=== PATIENT | female | born 1980 | race Caucasian/White ===

== ENCOUNTER 2018-08-11 21:44 | Emergency (ER) | payer SELFPAY ==
[~2018-08-11] VITALS: Ht 160 cm; Wt 86.2 kg
[~2018-08-11 21:44] MED LIST: ESCI20TA; IBUP-1222 PO; LABE100T6 PO; LORA1TAB; METH250T3 PO; METO5TAB57 PO; ONDA4TAB7 PO; PREN1TAB60 PO; VERA120C2; [UNRECOGNIZED DRUG - CODE]
[2018-08-11 22:41] LABS: HCG UR SG 1.039 (1.003-1.030); MICROSCOPIC INDICATED
[2018-08-11] MEDS ORDERED: MAALOX/HYOSCYAMINE/LIDOCAINE 45 ML BTL ONE (22:43)
[2018-08-11] MEDS ORDERED: ONDANSETRON ODT 4 MG ONE (22:43)
[2018-08-11] MEDS ORDERED: FAMOTIDINE 20 MG TABLET ONE (22:43)
[2018-08-11 22:47] LABS: BASOPHILS % (AUTO) 0 % (0-1); EOSINOPHILS # (AUTO) 0.06 x10^3/uL (0-0.4); EOSINOPHILS % (AUTO) 1 % (1-7); LYMPHOCYTES # (AUTO) 1.04 x10^3/uL (1-3.4); LYMPHOCYTES % (AUTO) 10 % (22-44); MD NO; MEAN CORPUSCULAR HEMOGLOBIN 30.4 pg (27.0-34.8); MEAN CORPUSCULAR HGB CONC 34.8 g/dL (32.4-35.8); MEAN CORPUSCULAR VOLUME 87.3 fL (80-100); MEAN PLATELET VOLUME 7.6 fL (7.4-10.4); MONOCYTES % (AUTO) 6 % (2-9); NEUTROPHILS # (AUTO) 9.08 x10^3/uL (1.8-6.8); NEUTROPHILS % (AUTO) 84 % (42-75); PLATELET COUNT 297 x10^3/uL (130-400); RED BLOOD COUNT 4.83 x10^6/uL (3.82-5.3); RED CELL DISTRIBUTION WIDTH 12.9 % (9.6-15.2)
[2018-08-11 22:57] LABS: ALANINE AMINOTRANSFERASE 36 U/L (12-78); ALBUMIN 3.4 g/dL (3.4-5.0); ANION GAP 7 mmol/L (5-15); CHLORIDE 108 mmol/L (98-107); CREATININE 0.68 mg/dL (0.55-1.02)
[2018-08-11 22:59] LABS: ALKALINE PHOSPHATASE 75 U/L (45-117); BILIRUBIN,TOTAL 1.1 mg/dL (0.2-1.0); TOTAL PROTEIN 7.6 g/dL (6.4-8.2)
[2018-08-11] MEDS ORDERED: FAMOTIDINE 20 MG TABLET PO ONE (23:00)
[2018-08-11] MEDS ORDERED: MAALOX/HYOSCYAMINE/LIDOCAINE 45 ML BTL PO ONE (23:00)
[2018-08-11] MEDS ORDERED: ONDANSETRON ODT 4 MG PO ONE (23:00)
[2018-08-11 23:08] LABS: CULTURE INDICATED? NO
[2018-08-11 23:51] VITALS: BP 113/78
== END 2018-08-11 23:51 | disposition home or self-care (01) ==
LOC: ED 23:45
DX: K29.00 Acute gastritis without bleeding (principal); I10 Essential (primary) hypertension
CPT/HCPCS: 36415; 80053; 81001; 81025; 83690; 85025; 93005; 99284; Q0162

== ENCOUNTER 2018-08-16 09:31 | Emergency (ER) | payer OTHER ==
[~2018-08-16] VITALS: Ht 160 cm; Wt 85.9 kg
[2018-08-16] MEDS ORDERED: ONDANSETRON 2MG/ML, 2ML IVPush ONE (11:00)
[2018-08-16] MEDS ORDERED: MAALOX/HYOSCYAMINE/LIDOCAINE 45 ML BTL PO ONE (11:00)
[2018-08-16] MEDS ORDERED: FAMOTIDINE 20 MG/2 ML IVP ONE (11:00)
[2018-08-16 11:13] LABS: MICROSCOPIC NOT IND
[2018-08-16 11:18] LABS: BASOPHILS # (AUTO) 0.02 x10^3/uL (0-0.1); BASOPHILS % (AUTO) 0 % (0-1); EOSINOPHILS # (AUTO) 0.05 x10^3/uL (0-0.4); EOSINOPHILS % (AUTO) 1 % (1-7); LYMPHOCYTES # (AUTO) 1.33 x10^3/uL (1-3.4); LYMPHOCYTES % (AUTO) 16 % (22-44); MD NO; MEAN CORPUSCULAR HEMOGLOBIN 30.2 pg (27.0-34.8); MEAN CORPUSCULAR HGB CONC 34.5 g/dL (32.4-35.8); MEAN CORPUSCULAR VOLUME 87.5 fL (80-100); MEAN PLATELET VOLUME 7.5 fL (7.4-10.4); MONOCYTES # (AUTO) 0.59 x10^3/uL (0.2-0.8); MONOCYTES % (AUTO) 7 % (2-9); NEUTROPHILS # (AUTO) 6.28 x10^3/uL (1.8-6.8); NEUTROPHILS % (AUTO) 76 % (42-75); PLATELET COUNT 336 x10^3/uL (130-400); RED BLOOD COUNT 4.99 x10^6/uL (3.82-5.3); RED CELL DISTRIBUTION WIDTH 13.1 % (9.6-15.2)
[2018-08-16 11:27] LABS: ALANINE AMINOTRANSFERASE 35 U/L (12-78); ALBUMIN 3.6 g/dL (3.4-5.0); ANION GAP 5 mmol/L (5-15); CALCIUM 8.7 mg/dL (8.5-10.1); CHLORIDE 110 mmol/L (98-107); CREATININE 0.62 mg/dL (0.55-1.02)
[2018-08-16 11:29] LABS: ALKALINE PHOSPHATASE 68 U/L (45-117); BILIRUBIN,TOTAL 0.7 mg/dL (0.2-1.0); TOTAL PROTEIN 7.1 g/dL (6.4-8.2)
[2018-08-16 11:31] LABS: CULTURE INDICATED? NO
[2018-08-16] MEDS ORDERED: FAMOTIDINE 20 MG/2 ML ONE (11:37)
[2018-08-16] MEDS ORDERED: MAALOX/HYOSCYAMINE/LIDOCAINE 45 ML BTL ONE (11:38)
[2018-08-16] MEDS ORDERED: ONDANSETRON ODT 4 MG ONE (11:38)
[2018-08-16 13:11] VITALS: BP 101/61
== END 2018-08-16 13:16 | disposition home or self-care (01) ==
LOC: ED 10:15
DX: K29.00 Acute gastritis without bleeding (principal); I10 Essential (primary) hypertension
CPT/HCPCS: 36415; 76700; 80053; 81003; 83690; 85025; 96374; 96375; 99284; J2405; J3490

== ENCOUNTER 2019-07-09 18:58 | Emergency (ER) | payer OTHER ==
[~2019-07-09] VITALS: Ht 160 cm; Wt 84.0 kg
--- NOTE | 2019-07-09 20:21 | NUR ---
MANAGER DATABASE: Patient to room from lobby at this time
--- NOTE | 2019-07-09 20:33 | NUR ---
PT STATED HAD SYNCOPAL EPISODE YESTERDAY AFTER BEING UPSET. PT REPORTS SHE FELT THOUGH HER BP WAS HIGH, PT REPORTS INCREASED STRESS SINCE YESTERDAY WITH CP, SOB AND THORNTON. HX OF HTN, HAS NOT BEEN COMPLIANT WITH MEDS. MONITORS APPLIED, SIDERAILS UP X2, CALL LIGHT WITHIN REACH
[2019-07-09 20:35] LABS: BASOPHILS # (AUTO) 0.04 x10^3/uL (0-0.1); BASOPHILS % (AUTO) 0 % (0-1); EOSINOPHILS # (AUTO) 0.17 x10^3/uL (0-0.4); EOSINOPHILS % (AUTO) 2 % (1-7); LYMPHOCYTES % (AUTO) 22 % (22-44); MD NO; MEAN CORPUSCULAR HEMOGLOBIN 31.1 pg (27.0-34.8); MEAN CORPUSCULAR VOLUME 91.3 fL (80-100); MEAN PLATELET VOLUME 7.8 fL (7.4-10.4); MONOCYTES # (AUTO) 0.58 x10^3/uL (0.2-0.8); MONOCYTES % (AUTO) 5 % (2-9); NEUTROPHILS # (AUTO) 8.21 x10^3/uL (1.8-6.8); NEUTROPHILS % (AUTO) 71 % (42-75); PLATELET COUNT 337 x10^3/uL (130-400); RED BLOOD COUNT 4.89 x10^6/uL (3.82-5.3)
[2019-07-09 20:38] LABS: ALBUMIN 4.1 g/dL (3.4-5.0); ANION GAP 7 mmol/L (5-15); CALCIUM 9.3 mg/dL (8.5-10.1); CHLORIDE 108 mmol/L (98-107)
[2019-07-09 20:41] LABS: TROPONIN I < 0.015 ng/mL (0.000-0.045)
[2019-07-09 21:40] VITALS: BP 149/99
== END 2019-07-09 21:45 | disposition home or self-care (01) ==
LOC: ED 21:20
DX: R07.89 Other chest pain (principal); F43.0 Acute stress reaction; R51 Headache; R06.02 Shortness of breath; I10 Essential (primary) hypertension; Z90.49 Acquired absence of other specified parts of digestive tract
CPT/HCPCS: 36415; 71046; 80048; 82040; 84484; 85025; 93005; 99284

== ENCOUNTER 2020-10-12 21:50 | Emergency (ER) | payer BC, MEDICAID ==
[~2020-10-12] VITALS: Ht 160 cm; Wt 84.0 kg
[~2020-10-12 21:50] MED LIST changes: -ESCI20TA; +ESCI20TA5
--- NOTE | 2020-10-12 22:14 | NUR ---
PT HERE FOR C/O NON RADIATING STERNAL CP SINCE 7PM, PLACED ON CARDIAC AND VITALS MONITORS. CALL LIGHT PLACED WITHIN REACH.
[2020-10-12] MEDS ORDERED: ASPIRIN 81 MG TABLET CHEW ONE (22:49)
[2020-10-12] MEDS ORDERED: ACETAMINOPHEN 500 MG TABLET ONE (22:49)
--- NOTE | 2020-10-12 22:55 | NUR ---
MEDICATED PER [facility]. LAB AND XRAY AT BEDSIDE.
[2020-10-12] MEDS ORDERED: ASPIRIN 81 MG TABLET CHEW PO ONE (23:00)
[2020-10-12] MEDS ORDERED: ACETAMINOPHEN 500 MG TABLET PO ONE (23:00)
[2020-10-12] MEDS ORDERED: METR500T PO (23:02)
--- NOTE | 2020-10-12 23:04 | NUR ---
REPORT TO LAURA ELIAS.
[2020-10-12 23:06] LABS: BASOPHILS % (AUTO) 0 % (0-1); EOSINOPHILS % (AUTO) 1 % (1-7); LYMPHOCYTES % (AUTO) 29 % (22-44); MEAN CORPUSCULAR HEMOGLOBIN 30.8 pg (27.0-34.8); MEAN CORPUSCULAR HGB CONC 35.3 g/dL (32.4-35.8); MEAN PLATELET VOLUME 7.3 fL (7.4-10.4); MONOCYTES % (AUTO) 7 % (2-9); NEUTROPHILS % (AUTO) 63 % (42-75); PLATELET COUNT 298 x10^3/uL (130-400); RED BLOOD COUNT 4.45 x10^6/uL (3.82-5.3); RED CELL DISTRIBUTION WIDTH 12.6 % (9.6-15.2)
[2020-10-12 23:14] LABS: MD NO
[2020-10-12 23:15] LABS: ALBUMIN 3.5 g/dL (3.4-5.0); ANION GAP 5 mmol/L (5-15); CALCIUM 8.6 mg/dL (8.5-10.1); CHLORIDE 111 mmol/L (98-107); CREATININE 0.67 mg/dL (0.55-1.02)
[2020-10-12 23:19] LABS: TROPONIN I < 0.015 ng/mL (0.000-0.045)
[2020-10-13 00:37] VITALS: BP 152/92
== END 2020-10-13 00:45 | disposition home or self-care (01) ==
LOC: ED 22:20
DX: R07.89 Other chest pain (principal); R51.9 Headache, unspecified; I10 Essential (primary) hypertension; I48.91 Unspecified atrial fibrillation; Z90.710 Acquired absence of both cervix and uterus
CPT/HCPCS: 36415; 71045; 80048; 82040; 84484; 85025; 93005; 99285